=== PATIENT | male | born 1945 | race Caucasian/White ===

== ENCOUNTER 2023-04-15 05:28 | Day surgery (SDC) | payer OTHER ==
[2023-04-08 16:35] VITALS: BMI 33.0
[2023-04-15 06:27] VITALS: RESP 20
[2023-04-15] MEDS ORDERED: MIDAZOLAM HCL 2 MG/2 ML SINGLE DOSE VIAL ONE (07:40)
[2023-04-15] MEDS ORDERED: ONDANSETRON 4 MG/2 ML VIAL ONE (07:40)
[2023-04-15 11:16] VITALS: TEMP 98.4
[2023-04-15 11:19] VITALS: BP 140/85; PULSE 72
== END 2023-04-15 09:40 | disposition home or self-care (01) ==
LOC: JASU-SURG 05:28
PROVIDERS: ATTEND Urology
PROC: 0TF4XZZ Fragmentation in Left Kidney Pelvis, External Approach (ICD-10-PCS; principal; 2023-04-15 08:00)
DX: N20.0 Calculus of kidney (principal)
CPT/HCPCS: 82962

== ENCOUNTER 2024-02-17 04:26 | Day surgery (SDC) | payer OTHER ==
[2024-02-12 18:03] VITALS: BMI 33.0
[2024-02-17] MEDS ORDERED: FENTANYL CITRATE/PF 50 MCG/ML VIAL ONE (12:02)
[2024-02-17] MEDS ORDERED: MIDAZOLAM HCL 2 MG/2 ML SINGLE DOSE VIAL ONE (12:02)
[2024-02-17 13:48] VITALS: RESP 18
[2024-02-17 13:51] VITALS: BP 138/77; PULSE 78; TEMP 97.9
== END 2024-02-17 13:20 | disposition home or self-care (01) ==
LOC: JASU-SURG 04:26
PROVIDERS: ATTEND Urology
PROC: 0TF4XZZ Fragmentation in Left Kidney Pelvis, External Approach (ICD-10-PCS; principal; 2024-02-17 11:00)
DX: N20.0 Calculus of kidney (principal)
CPT/HCPCS: 82962